=== PATIENT | female | born 1955 | race African-American/Black ===

== ENCOUNTER → 2017-11-24 | Outpatient (CLI) | payer MEDICARE, MEDICAID ==
[2017-11-24 19:02] LABS: HEMATOCRIT 45.5 % (37.0-47.0); HEMOGLOBIN 15.2 g/dl (12.5-16.0); MEAN CELL VOLUME 98 fl (80.0-100.0); MEAN CORPUSCULAR HEMOGLOBIN 33 pg (27.0-31.0); MEAN CORPUSCULAR HGB CONC 33 g/dl (33.0-37.0); MEAN PLATELET VOLUME 11.9 fl (7.4-10.4); RED BLOOD COUNT 4.65 M/mm3 (4.10-5.30); REDCELL DISTRIBUTION WIDTH-CV 14.5 % (11.5-14.5)
[2017-11-24 19:03] LABS: PLATELET COUNT 158 K/mm3 (130-400)
[2017-11-24 19:08] LABS: CALCIUM 10.6 mg/dL (8.4-10.2); CREATININE, serum 1.19 mg/dL (0.52-1.25); POTASSIUM 5.2 mmol/L (3.4-5.0)
== END ==
LOC: COL.LAB 18:23
PROVIDERS: Internal Medicine Interventional Cardiology
DX: I70.213 Atherosclerosis of native arteries of extremities with intermittent claudication, bilateral legs (principal)

== ENCOUNTER → 2017-12-10 | Outpatient (CLI) | payer MEDICARE, MEDICAID ==
[2017-12-10 19:27] LABS: HEMATOCRIT 42.4 % (37.0-47.0); MEAN CELL VOLUME 99 fl (80.0-100.0); MEAN CORPUSCULAR HEMOGLOBIN 33 pg (27.0-31.0); MEAN CORPUSCULAR HGB CONC 33 g/dl (33.0-37.0); MEAN PLATELET VOLUME 11.1 fl (7.4-10.4); PLATELET COUNT 186 K/mm3 (130-400); RED BLOOD COUNT 4.29 M/mm3 (4.10-5.30); REDCELL DISTRIBUTION WIDTH-CV 14.6 % (11.5-14.5)
[2017-12-10 19:52] LABS: CALCIUM 9.8 mg/dL (8.4-10.2); CREATININE, serum 1.27 mg/dL (0.52-1.25); POTASSIUM 4.6 mmol/L (3.4-5.0)
== END ==
LOC: COL.LAB 19:05
PROVIDERS: Internal Medicine Interventional Cardiology
DX: I70.213 Atherosclerosis of native arteries of extremities with intermittent claudication, bilateral legs (principal)

== ENCOUNTER 2018-03-20 14:04 | Emergency (ER) | payer MEDICARE, MEDICAID ==
[~2018-03-20] VITALS: Ht 172.7 cm; Wt 95.0 kg
[2018-03-20 14:06] VITALS: TEMP 97
[2018-03-20] MEDS ORDERED: GLUCOPHAGE850 MG/TAB PO (14:19)
[2018-03-20] MEDS ORDERED: PLAVIX 75MG TAB75 MG PO (14:19)
[2018-03-20] MEDS ORDERED: SYNTHROID0.1 MG/TAB PO (14:19)
[2018-03-20] MEDS ORDERED: NORVASC 5MG5 MG/TAB PO (14:20)
[2018-03-20] MEDS ORDERED: LOSARTAN-HCTZ 100-25 PO (14:20)
[2018-03-20] MEDS ORDERED: COREG 25MG25 MG/TAB PO (14:21)
[2018-03-20] MEDS ORDERED: NORCO 325 MG-51 TAB PO (15:24)
[2018-03-20 15:51] VITALS: PULSE 59
== END 2018-03-20 15:51 | disposition home or self-care (01) ==
LOC: COL.ER 14:04
DX: S63.91XA Sprain of unspecified part of right wrist and hand, initial encounter (principal); I10 Essential (primary) hypertension; E11.9 Type 2 diabetes mellitus without complications; F17.210 Nicotine dependence, cigarettes, uncomplicated; I73.9 Peripheral vascular disease, unspecified; Z88.0 Allergy status to penicillin; Z79.84 Long term (current) use of oral hypoglycemic drugs; Z79.02 Long term (current) use of antithrombotics/antiplatelets; X50.0XXA Overexertion from strenuous movement or load, initial encounter; Y92.009 Unspecified place in unspecified non-institutional (private) residence as the place of occurrence of the external cause

== ENCOUNTER → 2018-04-21 | Outpatient (CLI) | payer MEDICARE, MEDICAID ==
[~2018-04-21] MED LIST: COREG 25MG25 MG/TAB PO; GLUCOPHAGE850 MG/TAB PO; LOSARTAN-HCTZ 100-25 PO; NORCO 325 MG-51 TAB PO; NORVASC 5MG5 MG/TAB PO; PLAVIX 75MG TAB75 MG PO; SYNTHROID0.1 MG/TAB PO
== END ==
LOC: COL.RAD 09:53
DX: I70.8 Atherosclerosis of other arteries (principal); I70.203 Unspecified atherosclerosis of native arteries of extremities, bilateral legs; Z95.820 Peripheral vascular angioplasty status with implants and grafts; Z98.890 Other specified postprocedural states
CPT/HCPCS: Q9967

== ENCOUNTER 2018-10-31 11:38 | Emergency (ER) | payer MEDICARE, MEDICAID ==
[~2018-10-31] VITALS: Ht 172.7 cm; Wt 81.8 kg
[2018-10-31 11:55] VITALS: TEMP 94.5
[2018-10-31 12:54] LABS: HEMOGLOBIN 14.5 g/dl (12.5-16.0); MEAN CELL VOLUME 97 fl (80.0-100.0); MEAN CORPUSCULAR HEMOGLOBIN 32 pg (27.0-31.0); MEAN CORPUSCULAR HGB CONC 33 g/dl (33.0-37.0); MEAN PLATELET VOLUME 13.9 fl (7.4-10.4); PLATELET COUNT 121 K/mm3 (130-400); RED BLOOD COUNT 4.56 M/mm3 (4.10-5.30); REDCELL DISTRIBUTION WIDTH-CV 14.7 % (11.5-14.5)
[2018-10-31 13:10] LABS: ALANINE AMINOTRANSFERASE 15 U/L (9-52); ALBUMIN 4.2 gm/dL (3.5-5.0); ALKALINE PHOSPHATASE 171 U/L (50-136); ANION GAP 17 mmol/L (7-16); AST,SGOT 29 U/L (15-37); BILIRUBIN,TOTAL 1.1 mg/dL (0.0-1.0); BLOOD UREA NITROGEN 73 mg/dL (7-17); CALCIUM 9.2 mg/dL (8.4-10.2); CARBON DIOXIDE 19 mmol/L (22-30); CREATINE KINASE 42 U/L (30-135); CREATININE, serum 1.65 mg/dL (0.52-1.25); SODIUM 123 mmol/L (137-145); TOTAL PROTEIN 8.4 gm/dL (6.4-8.2)
[2018-10-31 13:15] LABS: LYMPHOCYTE 17 % (20.0-51.0); NEUTROPHILS 82 % (42.0-75.2)
[2018-10-31 13:16] LABS: PLATELET ESTIMATE DECREASED (NORMAL)
[2018-10-31 13:19] LABS: CHLORIDE 87 mmol/L (98-107); GLUCOSE 1001 mg/dL (74-106); POTASSIUM 6.2 mmol/L (3.4-5.0)
[2018-10-31 13:20] LABS: ARTERIAL BLD GAS O2 SATURATION 96.3 % (92-100); ARTERIAL BLD GAS TCO2 CT 15.7; ARTERIAL BLOOD GAS BASE EXCESS -10.5 (-2-2); ARTERIAL BLOOD GAS HCO3 14.7 meq/L (22-26); ARTERIAL BLOOD GAS PCO2 31.3 mmHg (35-45); ARTERIAL BLOOD GAS PO2 91.6 mmHg (80-100); ARTERIAL BLOOD GAS pH 7.29 (7.35-7.45)
[2018-10-31 13:23] LABS: TROPONIN-I < 0.012 ng/mL (0.000-0.034)
[2018-10-31] MEDS ORDERED: GLUCOPHAGE500 MG/TAB PO (13:25)
[2018-10-31] MEDS ORDERED: FLEXERIL5 MG PO (13:27)
[2018-10-31] MEDS ORDERED: COREG 25MG25 MG/TAB PO (13:28)
[2018-10-31] MEDS ORDERED: HYZAAR 25 MG-101 TAB PO (13:28)
[2018-10-31] MEDS ORDERED: MONODOX100 PO (13:28)
[2018-10-31 15:09] VITALS: BP 122/71; PULSE 60
== END 2018-10-31 15:10 | disposition short-term general hospital (02) ==
LOC: COL.ER 11:38
PROVIDERS: Emergency Medicine
DX: E11.10 Type 2 diabetes mellitus with ketoacidosis without coma (principal); E11.51 Type 2 diabetes mellitus with diabetic peripheral angiopathy without gangrene; I10 Essential (primary) hypertension; F17.210 Nicotine dependence, cigarettes, uncomplicated; Z90.49 Acquired absence of other specified parts of digestive tract; Z79.02 Long term (current) use of antithrombotics/antiplatelets; Z79.84 Long term (current) use of oral hypoglycemic drugs
CPT/HCPCS: J1815; J7030